=== PATIENT | male | born 1950 | race Caucasian/White ===

== ENCOUNTER → 2021-02-05 13:49 | Outpatient (CLI) | payer MEDICARE, OTHER | END | disposition home or self-care (01) | LOC: D.HCCECHO 13:49 | PROVIDERS: ATTEND Internal Medicine Cardiovascular Disease | DX: I48.91 Unspecified atrial fibrillation (principal) ==

== ENCOUNTER 2021-03-17 10:58 | Day surgery (SDC) | payer MEDICARE, OTHER ==
[~2021-03-17] VITALS: Ht 170.2 cm; Wt 75.0 kg
--- NOTE | ~2021-03-17 | HEMODYNAMI ---
PATIENT:HANS MEJIA MEDICAL RECORD: [id number] : 54 LOCATION:[facility] ADMISSION DATE: 03/17/21 Generatedon:114:37 Patient name: HANS MEJIA Patient #: [id number] SSN: [id number] : 1950 Date of study: 03/17/2021 Page: Of Hemodynamic Procedure Report Patient Data Patient Demographics Procedure consent was obtained First Name: HANS Gender: Male Last Name: ROBERTO : 1950 Patient #: [id number] Age: 71 year(s) Race: SSN: [id number] Additional ID: [id number] Contact details [address]: [address] [place] [address] [place] State: [place] City: [place] Zip code: [address] Admission Admission Data Admission Date: 03/17/2021 Admission Time: 10:58 Procedure Procedure Types Cath Procedure Diagnostic Procedure PPM/ICD PPM Dual Implant Sedation Charges Moderate Sedation 25-39 minutes Procedure Description Procedure Date Procedure Date: 03/17/2021 Procedure Start Time: 13:46 Procedure Staff Name Function Jorge Espinal MD Performing Physician Mesfin Viera MD Assisting physician Chhaya iLght RN Nurse Cortes Morales RN Nurse Rose Yeboah RT Scrub Didi Roberts RT Monitor Procedure Data Cath Procedure Fluoroscopy Diagnostic fluoroscopy Total fluoroscopy Time: 1.9 time: 1.9 min min Diagnostic fluoroscopy Total fluoroscopy dose: dose: 56.1 mGy 56.1 mGy Estimated blood loss: 5 ml Procedure Complications No complications Procedure Medications Medication Administration Route Dosage 0.9% NaCl I.V. 25 ml/hr Vancomycin I.V.P.B 1 g Vancomycin Topical 1 g Irrigation Lidocaine 1% added to field 20 Oxygen etCO2 Nasal cannula 2 l/min Fentanyl I.V. 50 mcg Versed I.V. 1 mg Fentanyl I.V. 50 mcg Versed I.V. 1 mg Fentanyl I.V. 50 mcg Versed I.V. 1 mg Fentanyl I.V. 50 mcg Versed I.V. 1 mg Hemodynamics Rest Heart Rate: 42 (bpm) Snapshots Pre Cath Intra NCS Post Cath Vital Signs Time Heart Resp SPO2 NIBP (mmHg) Rhythm Pain Sedation Rate (ipm) (%) Status Level (bpm) 13:07:22 42 18 97 145/70(118) SB 0 (11) 10(A) , No pain 13:11:28 46 12 98 113/93(103) SB 0 (11) 10(A) , No pain 13:16:35 42 15 97 149/69(122) SB 0 (11) 10(A) , No pain 13:20:55 39 12 94 136/67(111) SB 0 (11) 10(A) , No pain 13:25:09 37 14 100 136/69(118) SB 0 (11) 10(A) , No pain 13:29:23 44 39 99 134/70(119) SB 0 (11) 10(A) , No pain 13:33:37 41 30 100 131/68(118) SB 0 (11) 10(A) , No pain 13:37:49 42 12 100 129/69(109) SB 0 (11) 10(A) , No pain 13:42:01 39 12 100 134/66(100) SB 0 (11) 10(A) , No pain 13:46:13 42 16 96 133/71(101) SB 0 (11) 9(A) , No pain 13:50:25 68 10 99 135/73(121) SB 0 (11) 9(A) , No pain 13:54:25 46 13 92 99/73(91) SB 0 (11) 9(A) , No pain 13:58:26 45 12 95 113/68(107) SB 0 (11) 9(A) , No pain 14:02:28 51 12 96 121/81(95) SB 0 (11) 9(A) , No pain 14:06:38 44 10 98 116/65(87) SB 0 (11) 9(A) , No pain 14:11:37 56 19 98 Measuring SB 0 (11) 9(A) , No pain 14:11:45 59 26 98 129/70(114) SB 0 (11) 10(A) , No pain 14:15:55 59 9 99 134/74(121) SB 0 (11) 10(A) , No pain Medications Time Medication Route Dose Verified Delivered Reason Notes Effectiv eness by by 13:11:23 0.9% NaCl I.V. 25 Jorge Cortes used for ml/hr St Ag Morales RN procedure 13:11:36 Vancomycin I.V.P.B 1 g Jorge Cortes used for St Ag Morales RN procedure 13:11:52 Vancomycin Topical 1 g Jorge Wakefieldian used for Irrigation St Ag Viera MD procedure 13:12:10 Lidocaine added 20ml Jorge Wakefieldian for local 1% to vial St Ag Viera MD anesthetic field x2 13:12:31 Oxygen etCO2 2 Jorge Cortes used for Nasal l/min St Ag Morales litigation counsel cannula 13:44:45 Fentanyl I.V. 50 Jorge Cortes for mcg TeddyAg Morales RN sedation 13:44:55 Versed I.V. 1 mg Jorge Cortes for TeddyAg Morales RN sedation 13:46:42 Fentanyl I.V. 50 Jorge Cortes for mcg Teddy Andrew RN sedation 13:46:51 Versed I.V. 1 mg Jorge Cortes for Teddy Andrew RN sedation 13:50:44 Fentanyl I.V. 50 Jorge Cortes for mcg Teddy Andrew RN sedation 13:50:47 Versed I.V. 1 mg Jorge Cortes for Teddy Andrew RN sedation 13:54:11 Fentanyl I.V. 50 [facility] 13:54:15 Versed I.V. 1 mg [facility] Procedure Log Time Note 12:41:20 Diagnostic Cath Status : Elective 12:42:39 Informed consent obtained and on chart 12:50:38 Chhaya Light RN sent for patient. Start room use. 13:05:35 Procedure Status PPM/ Gen Change/ Lead Revision/ Temp. 13:05:52 Time tracking: Regular hours (M-F 7:00 - 5:00) 13:05:57 Plan of Care:Hemodynamics will remain stable., Cardiac rhythm will remain stable., Comfort level will be maintained., Respiratory function will remain adequate., Patient/ family verbilizes understanding of procedure., Procedure tolerated without complication., Recovers from procedure without complications.. 13:06:10 Patient received from Pre/Post Procedure Room to CCL 3 Alert and oriented. Tansferred to table in Supine position. 13:06:12 Warm blankets applied, and dylan hugger turned on for patient comfort. 13:06:12 Correct patient and procedure confirmed by team. 13:06:12 ECG and BP/O2 sat monitors applied to patient. 13:06:13 Vital chart was started 13:06:14 Baseline sample Acquired. 13:06:18 Rhythm: sinus bradycardia 13:06:20 Full Disclosure recording started 13:06:31 H&P Date Dictated: 03/17/2021 Greater than 30 days; new H&P dictated by physician. Or brief H&P completed., Emergent; H&P N/A, Within 30 days and on chart., H&P Addendum completed by physician on day of procedure. (MUST COMPLETE FOR ALL OUTPATIENTS), ER History on chart., New H&P dictated by physician.. 13:06:33 Pre-procedure instructions explained to patient. 13:06:34 Pre-op teaching completed and patient verbalized understanding. 13:06:38 Family in patients room. 13:06:39 Patient NPO since Midnight. 13:06:42 Is the patient allergic to Iodine/contrast media? No. 13:06:43 Was the patient premedicated? No 13:06:45 Is patient on blood thinner?Yes 13:07:15 patient states last dose of Eliquis on 03/14/2021 13:07:18 Patient diabetic? No. 13:07:20 Previous problem with sedation/anesthesia? No ? 13:07:22 Snore? Yes 13:07:24 Sleep apnea? No 13:07:24 Deviated septum? No 13:07:25 Opens mouth fully? Yes 13:07:26 Sticks out tongue? Yes 13:07:33 Airway obstruction? No ? 13:07:55 Dentures? No ? 13:07:58 Pre procedure: right dorsailis pedis pulse 2+ Normal; easily identifiable; not easily obliterated 13:08:01 Pre procedure: left dorsailis pedis pulse 2+ Normal; easily identifiable; not easily obliterated 13:08:04 Patient pain scale 0/10 ?. 13:08:10 IV patent on arrival in left forearm with 0.9% NaCl at [facility]. 13:08:13 Lab results completed and on chart. 13:08:17 Alarms reviewed by R. N. 13:08:18 Sharps counted by scrub and verified by R.N. 13:11:23 0.9% NaCl 25 ml/hr I.V. was administered by Cortes Morales RN; used for procedure; Verbal order read back and verified. 13:11:36 Vancomycin 1 g I.V.P.B was administered by Cortes Morales RN; used for procedure; Verbal order read back and verified. 13:11:52 Vancomycin Irrigation 1 g Topical was administered by Mesfin Viera MD; used for procedure; Verbal order read back and verified. 13:12:10 Lidocaine 1% 20ml vial x2 added to field was administered by Mesfin Viera MD; for local anesthetic; Verbal order read back and verified. 13:12:31 Oxygen 2 l/min etCO2 Nasal cannula was administered by Cortes Morales RN; used for procedure; Verbal order read back and verified. 13:44:10 Physician arrived 13:44:11 --------ALL STOP TIME OUT------ 13:44:11 Final Timeout: patient, procedure, and site verified with staff and physician. All members of the team are in agreement. 13:44:21 Left chest site verified by team. 13:44:25 Fire Safety Assessment: A--An alcohol-based skin anteseptic being used preoperatively., C--Open oxygen or nitrous oxide is being used., D--An ESU, laser, or fiber-optic light is being used. 13:44:28 Physical assessment completed. ASA score P 2 - A patient with mild systemic disease as per Jorge Espinal MD. 13:44:34 Sedation plan: IV Moderate Sedation Medication:Versed, Fentanyl 13:44:45 Fentanyl 50 mcg I.V. was administered by Cortes Morales RN; for sedation; Verbal order read back and verified. 13:44:55 Versed 1 mg I.V. was administered by Cortes Morales RN; for sedation; Verbal order read back and verified. 13:45:06 [employer] telemarketing representative FRED GAN present for procedure. 13:45:15 Pre sharps counted by scrub and verified by RN: Sutures: 7; Sponges: 5; Stick needles: 2; Skin needles: 2; Blade: 1; Cautery: 1 13:45:17 Grounding pad site Left thigh. 13:45:18 Grounding pad site free from injury. 13:46:20 Lidocaine 1% was administered to left subclavicular area by Mesfin Viera MD . 13:46:21 Incision made to left subclavicular area. 13:46:42 Fentanyl 50 mcg I.V. was administered by Cortes Morales RN; for sedation; Verbal order read back and verified. 13:46:51 Versed 1 mg I.V. was administered by Cortes Morales RN; for sedation; Verbal order read back and verified. 13:50:44 Fentanyl 50 mcg I.V. was administered by Cortes Morales RN; for sedation; Verbal order read back and verified. 13:50:47 Versed 1 mg I.V. was administered by Cortes Morales RN; for sedation; Verbal order read back and verified. 13:52:05 Generator pocket made/opened. 13:52:09 Left subclavian vein accessed with 7Fr Peel Away Sheath. 13:52:11 Left subclavian vein accessed with 7Fr Peel Away Sheath. 13:54:11 Fentanyl 50 mcg I.V. was administered by Cortes Morales RN; for sedation; Verbal order read back and verified. 13:54:15 Versed 1 mg I.V. was administered by Cortes Morales RN; for sedation; Verbal order read back and verified. 13:58:29 Ventricular lead inserted and advanced. 13:58:31 Atrial lead inserted and advanced. 14:03:27 Ventricular lead positioned. 14:04:45 Atrial lead positioned. 14:04:46 Peel-a-way sheath was split and removed. 14:04:47 Peel-a-way sheath was split and removed. 14:05:19 Ventricular lead attachment was completed with 2-0 ticron. 14:05:21 Atrial lead attachment was completed with 2-0 ticron. 14:05:29 PPM Dual was attached to lead(s) and inserted into pocket. 14:05:37 Generator was sutured in place with 2-0 ticron. 14:06:27 Device pocket was irrigated with Ancef. 14:07:58 Subcutaneous closure was completed with 3-0 vicryl plus. 14:08:02 Use device set [id number] PPM 14:08:03 2-0 Ticron Multipack ([id number]) opened to sterile field. 14:08:04 3-0 Vicryl Single Pack [id number] opened to sterile field. 14:08:04 5-0 Monocryl PS2 [id number] opened to sterile field. 14:08:05 Cautery Tip Fold Skiver opened to sterile field. 14:08:05 Cautery Pushbutton Pencil opened to sterile field. 14:08:06 Mepilex Dressing ([id number]) opened to sterile field. 14:09:12 Immobilizer Large opened to sterile field. 14:10:04 Skin closure was completed with 5-0 monocryl. 14:14:25 Lt Chest incision was dressed with Mepilex dressing. 14:14:37 Procedure ended.(Physican Out) 14:14:53 Fluoroscopy time 01.90 minutes. 14:14:58 Fluoroscopy dose: 56.1 mGy 14:14:58 Flurop Dose total: 56.1 14:15:05 Dose Area Product 581.70 mGy/cm. 14:15:08 Sharps counted by scrub and verified by R.N. 14:15:11 Post Procedure Pulses reassessed and unchanged 14:15:14 Post procedure rhythm: paced 14:15:16 Estimated blood loss: 5 ml 14:15:18 Post procedure instruction explained to patient.Patient verbalizes understanding. 14:15:19 Patient needs reinforcement of post procedure teaching. 14:15:45 Procedure type changed to Cath procedure, Diagnostic procedure, PPM/ICD, PPM Dual Implant, Sedation Charges, Moderate Sedation 25-39 minutes 14:15:47 Procedure and supply charges have been captured, reviewed, submitted and are correct. 14:15:52 Procedure Complication : No complications 14:15:55 Vital chart was stopped 14:15:56 Operative report dictated upon procedure completion. 14:15:57 See physician's report for complete and final results. 14:16:17 Report given to Pre/Post Procedure Room. 14:16:20 Patient transfered to Pre/Post Procedure Room with Stretcher. 14:16:29 End room use (Document Last) 14:24:[address] Generator [id number] opened to sterile field. 14:25:19 Medtronic 4574-45 PPM Lead opened to sterile field. 14:26:25 Medtronic 4074-52 PPM Lead opened to sterile field. Device Usage Item Name Manufacture Quantity Catalog Hospital Part Current Minima l Lot# / Serial# Number Charge Number Stock Stock Code 2-0 Ticron Ethicon 7 [id number] [id number] 5 Multipack ([id number]) 3-0 Vicryl Ethicon 1 [id number] 5 Single Pack [id number] 5-0 Monocryl Ethicon 1 [id number] 697064 966141 5 PS2 Y495G Cautery Tip Microtek 1 [id number] 723246 643118 237137 5 Fold [employer] Cautery Microtek 1 [id number] 643955 71998 [id number] 5 Push[employer] Pencil Mepilex Cardinal 1 245900 380299 793176 [id number] 5 [facility] ([id number]) Immobilizer Cardinal 1 [id number] 221037 [id number] 5 Large Health Medtronic Medtronic 1 [id number] 023490 5297569 [id number] [id number] [id number] Generator [id number] Medtronic Medtronic 1 4574-45 498178 742991 822325 5 [id number] 4574-45 PPM [id number] Lead Medtronic Medtronic 1 4074-52 457990 [id number] 711065 5 [id number] EXP 4074-52 PPM 08-12-2022 Lead Signature Audit [place] Stage Time Signature Unsigned Intra-Procedure 03/17/2021 Didi Roberts 2:35:56 PM RT(R) Intra-Procedure 03/17/2021 Cortes Morales RN 2:37:03 PM Intra-Procedure 03/17/2021 Jorge Cope 2:37:23 PM Ag INIGUEZ [facility] [address] [facility] [place] [address]
[~2021-03-17 10:58] MED LIST: BETAPACE 80 MG80 MG PO; ELIQUIS5 MG PO; LIPITOR20 MG PO; LOPRESSOR25 MG PO; PROTONIX40 MG PO; TIAZAC120 MG PO
[2021-03-17] MEDS ORDERED: TRAZODONE HCL50 MG PO (11:18)
[2021-03-17] MEDS ORDERED: VITAMIN C WIT1000 MG PO (11:19)
[2021-03-17] MEDS ORDERED: MIRALAX17 GM PO (11:20)
[2021-03-17] MEDS ORDERED: VITAMIN E200 UNI1 PO (11:20)
[2021-03-17] MEDS ORDERED: PROBIOTIC1 EAC1 PO (11:22)
[2021-03-17] MEDS ORDERED: MELATONIN10 M1 PO (11:22)
[2021-03-17 11:24] VITALS: BP 129/57; Ht 170.2 cm; Wt 75.0 kg
[2021-03-17 11:39] LABS: HEMOGLOBIN 14.4 g/dL (13.5-17.5); MCH 33.8 pg (26.0-34.0); MCHC 33.5 g/dL (31.0-37.0); MCV 100.9 fL (80.0-100.0); MEAN PLATELET VOLUME 10.5 fL (7.4-10.4); RBC 4.26 10x6/uL (4.20-6.10); RDW 12.9 % (11.5-14.5); WBC 6.3 10x3/uL (4.8-10.8)
[2021-03-17 11:47] LABS: CALC OSMOLALITY 279 mosm/kg (275-300); CALCIUM 9.3 mg/dL (8.5-10.1); CARBON DIOXIDE 26.6 mmol/L (21.0-32.0); CHLORIDE - SERUM 105 mmol/L (98-107); CREATININE - SERUM 0.8 mg/dL (0.6-1.3); GLUCOSE 98 mg/dL (74-106); POTASSIUM - SERUM 4.1 mmol/L (3.5-5.1); SODIUM 141 mmol/L (136-145); UREA NITROGEN 10 mg/dL (7-18); eGFR NON AFRICAN AMERICAN > 90 mL/min (90-120)
[2021-03-17 11:54] LABS: APTT 27.6 SECONDS (22.8-39.4); INR 1.06 (0.85-1.17); PROTIME 12.8 SECONDS (11.6-15.0)
--- NOTE | 2021-03-17 14:40 | NUR ---
DR. REYNOSO IN TO SEE PT, UPDATED, SPOKE WITH THEM AT LENGTH AND ANSWERED ALL QUESTIONS.
--- NOTE | 2021-03-17 14:45 | NUR ---
L CHEST PPM SITE C/D/I, NO S/S REDNESS OR DRAINAGE. ARM IN SLING, VSS. PT DENIES PAIN OR NEEDS. CM - AV PACED AT 60. ALARMS ON AND C/L IN REACH.
--- NOTE | 2021-03-17 15:00 | NUR ---
PT SITTING UP IN BED, SANDWICH AND COFFEE PROVIDED. CM - AV PACED, L CHEST PPM SITE C/D/I, NO REDNESS, DRAINAGE OR SWELLING NOTED. ALARMS ON AND C/L IN REACH.
--- NOTE | 2021-03-17 15:18 | NUR ---
PCXR REPORT WNL. VSS. CM - AV PACED, NO ECTOPY NOTED. PT DENIES PAIN OR NEEDS. PIV D/C'D INTACT, DSG APPLIED. PT UP TO GET DRESSED AND ASSISTED WITH L ARM SLING.
--- NOTE | 2021-03-17 15:28 | NUR ---
ALL DISCHARGE ORDERS REVIEWED WITH PT, INCLUDING RESTRICTIONS, MEDS AND F/U. PT VERBALIZES UNDERSTANDING.
--- NOTE | 2021-03-17 15:30 | NUR ---
PT TO BR INDEPENDENTLY. THEN D/C'D VIA WC TO PRIVATE VEHICLE WITH ALL PAPERWORK AND BELONGINGS.
--- NOTE | 2021-03-18 10:36 | OP ---
PATIENT NAME: HANS MEJIA MEDICAL RECORD: [id number] :54 LOCATION:[facility] ADMISSION DATE: SURGEON: DEVI LYLES MD DATE OF OPERATION: 03/17/2021 PREOPERATIVE DIAGNOSIS: Sick sinus syndrome with pauses. POSTOPERATIVE DIAGNOSIS: Sick sinus syndrome with pauses. PROCEDURE: Left subclavian vein dual lead pacemaker placement. SURGEON: Devi Lyles MD DESCRIPTION OF PROCEDURE: The patient's left chest was prepped and draped in sterile fashion. A 20 mL of 1% lidocaine with epinephrine was infused into the surrounding tissues. Transverse incision was made in the left superolateral chest and a subcutaneous pouch was made over the pectoral fascia. [place] were used to cannulate the left subclavian vein and guidewires were advanced with ease. Fluoroscopy was used to note that the wires were in good position in the venous system. Dilator trocar devices were placed over the wires and the wires and dilators were removed. The leads were then advanced through the trocars until they rested in the superior vena cava. At this point, Dr. Waggoner positioned the leads were appropriately in the atrium and ventricle. Once the leads were noted to be in good position, then these were sutured into place with 2-0 Ti-Cron. The leads were then affixed to the pacemaker, which was placed into the subcutaneous pouch. The pacemaker was sutured to the pectoral fascia with single interrupted 2-0 Ti-Cron. We irrigated out the wound bed with antibiotic solution and then closed the subcutaneous tissues with interrupted 3-0 Vicryl. The skin was closed with running subcutaneous 5-0 Monocryl and dressed appropriately. COMPLICATIONS: None. CONDITION: Stable. ANESTHESIA: Local MAC. BLOOD LOSS: Minimal. TRANSINT:[id number] Voice Confirmation ID: [id number] DOCUMENT ID: [id number] DEVI LYLES MD at 1036 CC: [id number] DICTATION DATE: 03/17/211413 SILVERLIGHT DEVELOPER: 03/17/212022 [facility] 03/17/21 [id number] [place] [address]
--- NOTE | 2021-03-18 12:15 | OP ---
PATIENT NAME: HANS MEJIA MEDICAL RECORD: [id number] :54 LOCATION:D.CAT ADMISSION DATE: SURGEON: CHRISSY REYNOSO MD DATE OF OPERATION: 03/17/2021 PROCEDURE: Lead portion of permanent pacemaker placement. INDICATION: Sick sinus syndrome with pauses. DESCRIPTION OF PROCEDURE: After left subclavian was cannulated via modified Seldinger via Dr. Viera first under fluoroscopic guidance, I placed the RV lead in the RV apex without difficulty. Adequate R-wave threshold was obtained, again under fluoroscopic guidance, placed right atrial lead in right atrial appendage without difficulty. After adequate P waves and thresholds were obtained, the leads were attached to the appropriate poles of the generator and the pocket was closed by Dr. Viera. IMPRESSION: Successful lead portion of permanent pacemaker placement for Hans Mejia. ESTIMATED BLOOD LOSS: Minimal. COMPLICATIONS: None. DISPOSITION: To the floor, stable. TRANSINT:[id number] Voice Confirmation ID: [id number] DOCUMENT ID: [id number] CHRISSY REYNOSO MD at 1215 CC: [id number] DICTATION DATE: 03/17/21 1407 CHARTER BOAT OPERATOR: 03/17/211999 [facility] 03/17/21 [address] [place] [address]
== END 2021-03-17 15:30 | disposition home or self-care (01) ==
LOC: D.CATH 10:58
PROVIDERS: ATTEND Internal Medicine Interventional Cardiology
DX: I48.91 Unspecified atrial fibrillation (principal); I49.5 Sick sinus syndrome